=== PATIENT | male | born 1970 | race Caucasian/White ===

== ENCOUNTER 2016-07-08 14:15 | Emergency (ER) | payer OTHER ==
[~2016-07-08] VITALS: Ht 177.8 cm; Wt 108.9 kg
[2016-07-08] MEDS ORDERED: DICL75TA PO (14:40)
[2016-07-08] MEDS ORDERED: SIMV40TA2 PO (14:40)
[2016-07-08] MEDS ORDERED: ASPI81TA85 PO (14:40)
[2016-07-08] MEDS ORDERED: LISI-538 PO (14:40)
[2016-07-08] MEDS ORDERED: SIMV20TA2 PO (14:40)
[2016-07-08] MEDS ORDERED: GABA-282 PO (14:40)
[2016-07-08 15:17] VITALS: BP 147/91
== END 2016-07-08 16:51 | disposition home or self-care (01) ==
LOC: M ED 15:02
DX: S01.01XA Laceration without foreign body of scalp, initial encounter (principal); W23.0XXA Caught, crushed, jammed, or pinched between moving objects, initial encounter; Y92.019 Unspecified place in single-family (private) house as the place of occurrence of the external cause; Y93.89 Activity, other specified; Y99.9 Unspecified external cause status; I10 Essential (primary) hypertension; E78.00 Pure hypercholesterolemia, unspecified; F17.200 Nicotine dependence, unspecified, uncomplicated; Z79.82 Long term (current) use of aspirin; Z79.899 Other long term (current) drug therapy

== ENCOUNTER 2016-09-22 19:48 | Emergency (ER) | payer OTHER ==
[~2016-09-22] VITALS: Ht 177.8 cm; Wt 106.3 kg
[~2016-09-22 19:48] MED LIST: ASPI81TA85 PO; DICL75TA PO; GABA-282 PO; LISI-538 PO; SIMV20TA2 PO; SIMV40TA2 PO
[2016-09-22 19:49] VITALS: BP 138/85
[2016-09-22] MEDS ORDERED: NORCO 5/325MG TABLET (BULK FOR ED) PO ONE (20:30)
== END 2016-09-22 20:39 | disposition home or self-care (01) ==
LOC: M ED 19:48
DX: S83.92XA Sprain of unspecified site of left knee, initial encounter (principal); X50.1XXA Overexertion from prolonged static or awkward postures, initial encounter; Y92.099 Unspecified place in other non-institutional residence as the place of occurrence of the external cause; Y93.9 Activity, unspecified; Y99.9 Unspecified external cause status; I10 Essential (primary) hypertension; F17.200 Nicotine dependence, unspecified, uncomplicated; Z79.82 Long term (current) use of aspirin; Z79.899 Other long term (current) drug therapy

== ENCOUNTER → 2016-10-24 | Outpatient (REF) | payer OTHER | LOC: M SFHCLERA 08:11 | PROVIDERS: ATTEND Family Medicine | DX: E78.5 Hyperlipidemia, unspecified (principal); I10 Essential (primary) hypertension; Z53.9 Procedure and treatment not carried out, unspecified reason ==

== ENCOUNTER → 2016-10-25 | Outpatient (REF) | payer OTHER ==
[2016-10-25 11:49] LABS: MEAN CORPUSCULAR HEMOGLOBIN 31.9 pg (27.0-33.0); MEAN CORPUSCULAR HGB CONC 34.6 g/dl (32.0-36.5); RED CELL DISTRIBUTION WIDTH 12.4 % (11.5-14.5); WHITE BLOOD COUNT 6.5 K/mm3 (4.0-10.0)
[2016-10-25 12:16] LABS: ALBUMIN/GLOBULIN RATIO 1.33 (1.00-1.93); ALKALINE PHOSPHATASE 65 U/L (45-117); ALT/SGPT 63 U/L (12-78); ANION GAP 7 MEQ/L (8-16); AST/SGOT 30 U/L (15-37); BILIRUBIN,TOTAL 0.6 MG/DL (0.2-1.0); BLOOD UREA NITROGEN 14 MG/DL (7-18); CALCIUM LEVEL 9.1 MG/DL (8.5-10.1); CARBON DIOXIDE LEVEL 30 MEQ/L (21-32); CHLORIDE LEVEL 105 MEQ/L (98-107); CHOLESTEROL LEVEL 145 MG/DL (<200); CREATININE FOR GFR 0.98 MG/DL (0.70-1.30); GLOMERULAR FILTRATION RATE > 60.0 (>60); GLUCOSE, FASTING 90 MG/DL (70-105); POTASSIUM SERUM 4.4 MEQ/L (3.5-5.1); SODIUM LEVEL 142 MEQ/L (136-145); TRIGLYCERIDES LEVEL 160 MG/DL (<150)
[2016-10-25 13:02] LABS: EOSINOPHILS 3 % (0-5)
== END ==
LOC: M SFHCLERA 08:07
PROVIDERS: ATTEND Family Medicine
DX: E78.5 Hyperlipidemia, unspecified (principal); I10 Essential (primary) hypertension

== ENCOUNTER 2017-10-22 17:33 | Emergency (ER) | payer OTHER ==
[2017-10-22 19:18] LABS: BASO % 0.4 % (0.0-1.0); EOS # 0.2 10^3/uL (0.0-0.50); EOS % 2.1 % (0.0-3.0); HEMATOCRIT 41.5 % (42.0-52.0); HEMOGLOBIN 14.2 g/dl (13.5-17.5); IMMATURE GRANULOCYTE % 0.3 % (0-3.0); LYMPH # 2.1 10^3/uL (1.5-4.5); MEAN CORPUSCULAR HEMOGLOBIN 31.1 pg (27.0-33.0); MEAN CORPUSCULAR HGB CONC 34.2 g/dl (32.0-36.5); MEAN CORPUSCULAR VOLUME 90.8 fl (80.0-96.0); MONO # 0.5 10^3/uL (0.0-0.8); MONO % 7.4 % (0.0-5.0); NEUTROPHILS # 4.2 10^3/uL (1.8-7.7); NEUTROPHILS % 59.8 % (36.0-66.0); PLATELET COUNT, AUTOMATED 231 10^3/uL (150-450); RED BLOOD COUNT 4.57 10^6/uL (4.30-6.10); RED CELL DISTRIBUTION WIDTH 12.5 % (11.5-14.5); WHITE BLOOD COUNT 7.1 10^3/uL (4.0-10.0)
[2017-10-22 19:54] LABS: INR 0.94; PROTHROMBIN TIME 12.7 SECONDS (12.1-14.4)
[2017-10-22 19:55] LABS: PARTIAL THROMBOPLASTIN TIME 27.5 SECONDS (25.4-37.6)
[2017-10-22 19:56] LABS: ALBUMIN 3.9 GM/DL (3.2-5.2); ALBUMIN/GLOBULIN RATIO 1.05 (1.00-1.93); ALKALINE PHOSPHATASE 71 U/L (45-117); ALT/SGPT 33 U/L (12-78); ANION GAP 7 MEQ/L (8-16); AST/SGOT 24 U/L (7-37); BILIRUBIN,DIRECT < 0.1 MG/DL (0.0-0.2); BILIRUBIN,TOTAL 0.5 MG/DL (0.2-1.0); BLOOD UREA NITROGEN 14 MG/DL (7-18); CALCIUM LEVEL 9.4 MG/DL (8.5-10.1); CARBON DIOXIDE LEVEL 27 MEQ/L (21-32); CHLORIDE LEVEL 105 MEQ/L (98-107); CPK CREATINE PHOSPHOKINASE 194 U/L (39-308); CREATININE FOR GFR 0.99 MG/DL (0.70-1.30); GLOMERULAR FILTRATION RATE > 60.0 (>60); GLUCOSE, FASTING 94 MG/DL (70-100); LIPASE 80 U/L (73-393); MB/CK RELATIVE INDEX 1.19 (< OR =4); POTASSIUM SERUM 3.9 MEQ/L (3.5-5.1); SODIUM LEVEL 139 MEQ/L (136-145); TOTAL PROTEIN 7.6 GM/DL (6.4-8.2); TROPONIN I < 0.02 NG/ML (< 0.10)
[2017-10-22] MEDS: ASPIRIN 325 MG TAB PO (20:00)
== END 2017-10-22 20:54 | disposition home or self-care (01) ==
LOC: M ED 17:33
DX: R07.9 Chest pain, unspecified (principal); I10 Essential (primary) hypertension; E87.5 Hyperkalemia; J38.1 Polyp of vocal cord and larynx; Z72.0 Tobacco use; Z79.82 Long term (current) use of aspirin; Z79.899 Other long term (current) drug therapy
CPT/HCPCS: 71046

== ENCOUNTER → 2018-04-28 | Outpatient (CLI) | payer OTHER ==
[~2018-04-28] MED LIST changes: -GABA-282 PO; +GABA-843 PO; +LISI-538; +NAPR-885 PO; +SIMV20TA2
[2018-04-28 11:58] LABS: CHOLESTEROL RISK RATIO 5.645 (<5)
== END ==
LOC: M LRY 08:14
PROVIDERS: ATTEND Internal Medicine Cardiovascular Disease
DX: E78.1 Pure hyperglyceridemia (principal)

== ENCOUNTER → 2020-07-18 | Outpatient (CLI) | payer OTHER ==
[~2020-07-18] MED LIST changes: -ASPI81TA85 PO; +ASPI81TA86 PO; +GABA-282 PO; -GABA-843 PO; -LISI-538; -LISI-538 PO; +LISI20TA33; +LISI20TA33 PO; -SIMV20TA2; -SIMV20TA2 PO; +SIMV20TA22; +SIMV20TA22 PO; -SIMV40TA2 PO; +SIMV40TA20 PO
== END ==
LOC: M WUC 08:26
PROVIDERS: ATTEND Physician Assistant
DX: N40.1 Benign prostatic hyperplasia with lower urinary tract symptoms (principal); Z12.5 Encounter for screening for malignant neoplasm of prostate

== ENCOUNTER → 2021-08-20 | Outpatient (CLI) | payer OTHER | LOC: M WUC 08:22 | PROVIDERS: ATTEND Physician Assistant | DX: Z12.5 Encounter for screening for malignant neoplasm of prostate (principal) ==

== ENCOUNTER → 2022-05-27 | Outpatient (CLI) | payer OTHER | LOC: M WUC 11:37 | PROVIDERS: ATTEND Specialist | DX: Z12.5 Encounter for screening for malignant neoplasm of prostate (principal) ==

== ENCOUNTER → 2022-08-27 | Outpatient (CLI) | payer OTHER ==
[2022-08-27 10:09] LABS: ALBUMIN 4.1 G/DL (3.2-5.2); ALKALINE PHOSPHATASE 78 U/L (46-116); ALT/SGPT 34 U/L (7.0-40); AST/SGOT 27 U/L (<34); BILIRUBIN,TOTAL 0.8 MG/DL (0.3-1.2); BLOOD UREA NITROGEN 17 MG/DL (9-23); CALCIUM LEVEL 9.2 MG/DL (8.5-10.1); CARBON DIOXIDE LEVEL 29 MMOL/L (20-31); CHLORIDE LEVEL 105 MMOL/L (98-107); CHOLESTEROL LEVEL 190 MG/DL (<200); CHOLESTEROL RISK RATIO 5.74 (<5); CREATININE FOR GFR 0.99 MG/DL (0.70-1.30); GLOMERULAR FILTRATION RATE > 60.0 (>56); GLUCOSE, FASTING 91 MG/DL (60-100); HDL CHOLESTEROL 33.1 MG/DL (>40); LDL CHOLESTEROL 121.5 MG/DL (<100); NON-HDL-C 156.9 MG/DL; POTASSIUM SERUM 4.3 MMOL/L (3.5-5.1); SODIUM LEVEL 143 MMOL/L (136-145); TOTAL PROTEIN 6.9 G/DL (5.7-8.2); TRIGLYCERIDES LEVEL 177 MG/DL (<150)
== END ==
LOC: M WUC 08:10
PROVIDERS: ATTEND Student in an Organized Health Care Education/Training Program
DX: E78.5 Hyperlipidemia, unspecified (principal); I10 Essential (primary) hypertension

== ENCOUNTER → 2022-10-08 | Outpatient (CLI) | payer OTHER | LOC: M RAD 06:53 | PROVIDERS: ATTEND Family Medicine | DX: F17.210 Nicotine dependence, cigarettes, uncomplicated (principal) ==

== ENCOUNTER 2022-12-03 12:59 | Emergency (ER) | payer OTHER ==
[~2022-12-03] VITALS: Ht 177.8 cm; Wt 105.1 kg
[2022-12-03 14:04] LABS: BASO % 0.5 % (0.0-1.0); EOS # 0.1 10^3/uL (0.0-0.5); HEMATOCRIT 42.1 % (42.0-52.0); HEMOGLOBIN 14.2 g/dl (13.5-17.5); LYMPH % 31.8 % (24.0-44.0); MEAN CORPUSCULAR HEMOGLOBIN 30.8 pg (27.0-33.0); MEAN CORPUSCULAR HGB CONC 33.7 g/dl (32.0-36.5); MEAN CORPUSCULAR VOLUME 91.3 fl (80.0-96.0); MONO # 0.5 10^3/uL (0.0-0.8); MONO % 8.5 % (2.0-8.0); NEUTROPHILS # 3.6 10^3/uL (1.5-8.5); NEUTROPHILS % 56.9 % (36.0-66.0); PLATELET COUNT, AUTOMATED 211 10^3/uL (150-450); RED BLOOD COUNT 4.61 10^6/uL (4.30-6.10); WHITE BLOOD COUNT 6.4 10^3/uL (4.0-10.0)
[2022-12-03 14:19] LABS: INR 0.97; PROTHROMBIN TIME 12.6 SECONDS (12.5-14.5)
[2022-12-03 14:21] LABS: BILIRUBIN,DIRECT 0.2 MG/DL (<0.4); BILIRUBIN,TOTAL 0.5 MG/DL (0.3-1.2); CK-MB VALUE MASS 3.2 NG/ML (<3.6); TOTAL PROTEIN 6.7 G/DL (5.7-8.2)
[2022-12-03 14:21] LABS: BLOOD UREA NITROGEN 18 MG/DL (9-23); CARBON DIOXIDE LEVEL 29 MMOL/L (20-31); CHLORIDE LEVEL 105 MMOL/L (98-107); CREATININE FOR GFR 0.85 MG/DL (0.70-1.30); GLOMERULAR FILTRATION RATE > 60.0 (>56); GLUCOSE, FASTING 124 MG/DL (60-100); POTASSIUM SERUM 4.9 MMOL/L (3.5-5.1); SODIUM LEVEL 140 MMOL/L (136-145)
[2022-12-03 14:24] LABS: THYROID STIMULATING HORMONE 1.131 uIU/ML (0.55-4.78)
[2022-12-03 14:25] LABS: MB/CK RELATIVE INDEX 1.6 (< OR =4)
[2022-12-03 14:29] LABS: PROCALCITONIN <0.04 ng/ml
[2022-12-03] MEDS ORDERED: ASPIRIN 81MG CHEW TABLET PO ONE (14:50)
[2022-12-03 15:23] LABS: CK-MB VALUE MASS 3.2 NG/ML (<3.6)
[2022-12-03 15:48] LABS: MB/CK RELATIVE INDEX 1.66 (< OR =4)
[2022-12-03] MEDS ORDERED: HEPARIN SOD (PORCINE) 5000UNITS/ML 1ML VIAL/SYRINGE IV ONE (15:55)
[2022-12-03] MEDS ORDERED: HEPARIN DRIP 25,000 UNITS in IV 1 EA IV SCH (15:55)
[2022-12-03 17:15] VITALS: BP 146/97; TEMP 98.2; O2SAT 95
== END 2022-12-03 17:42 | disposition short-term general hospital (02) ==
LOC: M ED 12:59
DX: I21.4 Non-ST elevation (NSTEMI) myocardial infarction (principal); I44.4 Left anterior fascicular block; I45.81 Long QT syndrome; I45.4 Nonspecific intraventricular block; I10 Essential (primary) hypertension; E78.5 Hyperlipidemia, unspecified; F17.200 Nicotine dependence, unspecified, uncomplicated; Z79.82 Long term (current) use of aspirin

== ENCOUNTER 2023-01-07 13:38 | Emergency (ER) | payer OTHER ==
[~2023-01-07] VITALS: Ht 177.8 cm; Wt 106.8 kg
[2023-01-07] MEDS ORDERED: PANT40TA29 PO (14:00)
[2023-01-07] MEDS ORDERED: BRIL90TA PO (14:01)
[2023-01-07] MEDS ORDERED: METO1TAB32 PO (14:01)
[2023-01-07 14:43] LABS: BASO % 0.5 % (0.0-1.0); EOS # 0.2 10^3/uL (0.0-0.5); EOS % 2.4 % (0.0-3.0); HEMATOCRIT 36.2 % (42.0-52.0); HEMOGLOBIN 12.7 g/dl (13.5-17.5); LYMPH # 1.7 10^3/uL (1.5-5.0); LYMPH % 26.5 % (24.0-44.0); MEAN CORPUSCULAR HEMOGLOBIN 31.4 pg (27.0-33.0); MEAN CORPUSCULAR HGB CONC 35.1 g/dl (32.0-36.5); MEAN CORPUSCULAR VOLUME 89.6 fl (80.0-96.0); MONO # 0.5 10^3/uL (0.0-0.8); MONO % 8.1 % (2.0-8.0); NEUTROPHILS # 3.9 10^3/uL (1.5-8.5); NEUTROPHILS % 62.2 % (36.0-66.0); PLATELET COUNT, AUTOMATED 219 10^3/uL (150-450); RED BLOOD COUNT 4.04 10^6/uL (4.30-6.10); WHITE BLOOD COUNT 6.3 10^3/uL (4.0-10.0)
[2023-01-07 15:05] LABS: BLOOD UREA NITROGEN 16 MG/DL (9-23); CALCIUM LEVEL 8.9 MG/DL (8.5-10.1); CARBON DIOXIDE LEVEL 28 MMOL/L (20-31); CHLORIDE LEVEL 105 MMOL/L (98-107); CK-MB VALUE MASS 2.5 NG/ML (<3.6); CREATININE FOR GFR 0.95 MG/DL (0.70-1.30); GLOMERULAR FILTRATION RATE > 60.0 (>56); GLUCOSE, FASTING 108 MG/DL (60-100); SODIUM LEVEL 139 MMOL/L (136-145)
[2023-01-07 15:09] LABS: CPK CREATINE PHOSPHOKINASE 183 U/L (46-171); MB/CK RELATIVE INDEX 1.36 (< OR =4)
[2023-01-07 16:09] LABS: CK-MB VALUE MASS 1.8 NG/ML (<3.6)
[2023-01-07 16:14] LABS: MB/CK RELATIVE INDEX 1.02 (< OR =4)
[2023-01-07] MEDS ORDERED: PANTOPRAZOLE 40MG TAB (PROTONIX) PO ONE (18:15)
[2023-01-07] MEDS ORDERED: TICAGRELOR 90 MG TABLET (BRILINTA) PO ONE (21:00)
[2023-01-08 06:39] VITALS: BP 145/89; TEMP 97.7; O2SAT 100
[2023-01-08] MEDS ORDERED: ASPIRIN 81MG ENTERIC TABLET PO SCH (09:00)
== END 2023-01-08 06:42 | disposition short-term general hospital (02) ==
LOC: M ED 13:38
DX: I20.9 Angina pectoris, unspecified (principal); Z95.5 Presence of coronary angioplasty implant and graft; I25.2 Old myocardial infarction; Z86.79 Personal history of other diseases of the circulatory system; Z79.82 Long term (current) use of aspirin; Z79.899 Other long term (current) drug therapy

== ENCOUNTER → 2023-06-02 | Outpatient (REF) | payer OTHER ==
[~2023-06-02] MED LIST changes: +BRIL90TA PO; +METO1TAB32 PO; +PANT40TA29 PO
[2023-06-02 17:59] LABS: BLOOD UREA NITROGEN 14 MG/DL (9-23); CREATININE FOR GFR 0.85 MG/DL (0.70-1.30); GLOMERULAR FILTRATION RATE > 60.0 (>56)
== END ==
LOC: M LABWUC 16:32
PROVIDERS: ATTEND Family Medicine
DX: R91.8 Other nonspecific abnormal finding of lung field (principal); I10 Essential (primary) hypertension; E66.9 Obesity, unspecified

== ENCOUNTER → 2023-06-02 | Outpatient (REF) | payer OTHER ==
[2023-06-02 18:05] LABS: CHOLESTEROL RISK RATIO 4.72 (<5); HDL CHOLESTEROL 28.6 MG/DL (>40); LDL CHOLESTEROL 44.8 MG/DL (<100); NON-HDL-C 106.4 MG/DL
== END ==
LOC: M LABWUC 16:31
PROVIDERS: ATTEND Internal Medicine Cardiovascular Disease
DX: E78.5 Hyperlipidemia, unspecified (principal)

== ENCOUNTER → 2023-06-02 | Outpatient (REF) | payer OTHER | LOC: M LABWUC 16:29 | PROVIDERS: ATTEND Specialist | DX: Z12.5 Encounter for screening for malignant neoplasm of prostate (principal) ==

== ENCOUNTER 2023-12-21 21:46 | Emergency (ER) | payer OTHER ==
[~2023-12-21] VITALS: Ht 177.8 cm; Wt 105.9 kg
[~2023-12-21 21:46] MED LIST changes: +GABA-1172 PO; -GABA-282 PO
[2023-12-21] MEDS ORDERED: AMOX875T2 PO (23:03)
[2023-12-21] MEDS: AUGMENTIN 875 MG TAB PO ONE (23:05)
[2023-12-21 23:15] VITALS: BP 125/73
[2023-12-21 23:16] VITALS: TEMP 97.9; O2SAT 95
== END 2023-12-21 23:22 | disposition home or self-care (01) ==
LOC: M ED 21:46
DX: K04.7 Periapical abscess without sinus (principal); I11.0 Hypertensive heart disease with heart failure; K21.9 Gastro-esophageal reflux disease without esophagitis; E78.5 Hyperlipidemia, unspecified; Z79.2 Long term (current) use of antibiotics; Z79.82 Long term (current) use of aspirin; Z79.899 Other long term (current) drug therapy; Z86.79 Personal history of other diseases of the circulatory system